=== PATIENT | male | born 1955 | race Caucasian/White ===

== ENCOUNTER 2020-03-31 10:50 | Outpatient (CLI) | payer OTHER ==
[2020-03-31 12:28] LABS: ALBUMIN 3.8 g/dL (3.4-4.8); CALCIUM 9.6 mg/dL (8.4-11.0); CREATININE 0.82 mg/dL (0.55-1.30); TOTAL BILIRUBIN 0.6 mg/dL (0.0-1.0)
[2020-03-31] MEDS ORDERED: GADOBENATE DIMEGLUMINE 529 MG/ML, 15 ML VIAL IV ONE (13:05)
== END 2020-03-31 20:33 | disposition home or self-care (01) ==
LOC: SMI 10:50
PROVIDERS: ATTEND Otolaryngology
DX: G31.9 Degenerative disease of nervous system, unspecified (principal); H91.90 Unspecified hearing loss, unspecified ear; H93.8X9 Other specified disorders of ear, unspecified ear
CPT/HCPCS: 36415; 70553; 80053; A9577